=== PATIENT | female | born 1970 | race African-American/Black ===

== ENCOUNTER 2019-10-24 04:04 | Emergency (ER) | payer OTHER, SELFPAY ==
--- NOTE | ~2019-10-24 | CT_ITS ---
EXAMINATION: CTA brain carotid DATE: 10/24/2019 05:57 INDICATION: Right-sided headache and arm pain TECHNIQUE: Computed tomographic angiography (CTA) of the head was performed without and with 100 mL O mnipaque-350 intravenous contrast. CTA of the neck was performed with intravenous contrast. The dose- length product was 1758.26 mGy-cm. Maximum intensity projection and volume rendered 3D-reconstruction s were created by the technologist on a separate workstation. Automated exposure control and iterativ e reconstruction technique were employed. COMPARISON: None. FINDINGS: HEAD CTA: There is no intracranial hemorrhage, acute infarction, or abnormal mass lesion. The ventric les are normal. There is no abnormal mass effect or midline shift. The del cid-white matter differentiat ion is normal. The basal cisterns are patent. The orbits are normal. The paranasal sinuses, mastoids and calvarium are normal. There is no significant stenosis of the basilar artery or posterior cerebral arteries. There is no si gnificant stenosis of the intracranial internal carotid arteries or the anterior or middle cerebral a rteries. The anterior communicating artery and posterior communicating arteries are normal. There is no aneurysm. NECK CTA: There are no pathologically enlarged cervical lymph nodes. There is mild dependent atelecta sis of the lungs. Mild cervical spondylosis is noted. There is 0% stenosis of the proximal right internal carotid artery relative to normal distal artery l umen diameter (NASCET criteria). There is 0% stenosis of the proximal left internal carotid artery re lative to normal distal artery lumen diameter. IMPRESSION: 1. No acute intracranial abnormality. Normal head CTA. 2. 0% stenosis of the proximal right internal carotid artery relative to normal distal artery lumen d iameter (NASCET criteria). 3. 0% stenosis of the proximal left internal carotid artery relative to normal distal artery lumen di ameter. Reviewed, dictated and finalized at location A. BINDER IMPRESSION: 1. No acute intracranial abnormality. Normal head CTA. 2. 0% stenosis of the proximal right internal carotid artery relative to normal distal artery lumen diameter (NASCET criteria). 3. 0% stenosis of the proximal left internal carotid artery relative to normal distal artery lumen diameter.
[2019-10-24 04:12] VITALS: BP 138/83; PULSE 80; RESP 18; TEMP 36.6; O2SAT 99
--- NOTE | 2019-10-24 04:38 | ED.HA ---
HPI - Headache General Chief Complaint: Headache Stated Complaint: headache Time Seen by Provider: 10/24/19 04:40 Source: RN notes reviewed History of Present Illness HPI Narrative: Patient presents emergency department from home for headache. Patient states symptoms began approximately 10 PM last night. Pain is located over the right side of the head and does not radiate. Patient describes the pain as throbbing. She states is associated with nausea as well as a throbbing pain in her right arm. Patient states that approximately once a month for numerous years she has had pain over the right side of her head with associated pain in her right arm. States symptoms will sometimes resolve after few hours and sometimes will last for an entire day. Patient does states she took Tylenol prior to arrival today states that she has never had any previous evaluation for her headaches. She denies any fevers or chills chest pain shortness of breath or any other symptoms. Patient states that while she has a throbbing in the right arm there is no numbness tingling or weakness. There is no tenderness to touching the right arm and there is full range of motion of all joints without pain with movement Related Data Allergies Allergy/AdvReac Type Severity Reaction Status Date / Time amoxicillin [From Augmentin] Allergy Diarrhea Verified 10/24/19 04:16 clavulanic acid Allergy Diarrhea Verified 10/24/19 04:16 [From Augmentin] clindamycin Allergy Unknown Verified 10/24/19 04:16 Review of Systems Review of Systems: Narrative: Gen.: Denies fevers or chills Eyes: Denies eye pain or visual change ENT: Denies congestion Respiratory: Denies shortness of breath or cough CV: Denies chest pain or palpitations GI: Denies abdominal pain nausea, emesis or diarrhea denies burning, urgency, frequency or hematuria Musculoskeletal: Denies back pain or muscle pain Neuro: See HPI Skin: Denies rash Except as documented, all other systems reviewed and negative [facility] Past Medical History Medical History (Updated 10/24/19 @ 05:51 by Delfino Nur DO) Patient denies significant medical history Family History Family History (Updated 03/30/16 @ 23:21 by DOCTOR UNKNOWN) Mother Hypertension Family history of liver disease Cerebrovascular accident Patient's mother is Family history of alcoholism Sibling Patient's sister is in good health Patient's brother is in good health Family history of thyroid disease Father Cerebrovascular accident, Onset Age: 76 Hypertension Family history of kidney disease Patient's father is Family history of alcoholism Family history of congestive heart failure Grandparent Cerebrovascular accident Social History Social History Smoking status: Never smoker Alcohol intake: never Exam Narrative: Exam Narrative: APPEARANCE: No acute distress, nontoxic, resting in bed HEENT: Normocephalic, atraumatic, OMM, TMs clear bilaterally EYES: PERRL, EOMI NECK: Supple, nontender, full range of motion without pain, no meningismus RESPIRATORY: No respiratory distress, clear to auscultation bilaterally with no rhonchi wheezing or rales CARDIOVASCULAR: RRR s murmur ABDOMINAL: Soft, nontender, nondistended MUSCULOSKELETAL: Moves all extremities. No clubbing, cyanosis or edema. Bilateral radial pulse 2+. Full range of motion of right wrist elbow and shoulder without pain the entire right upper extremity is nontender to palpation it is warm to touch NEURO: A and O ?3, following commands, speech normal, cranial nerves II through XII grossly intact,muscle strength 5 out of 5 bilateral upper and lower extremities SKIN:: Warm, dry. Normal Color PSYCHIATRIC: Normal affect/mood Course Course Emergency Course: Patient states headache is resolved at this time as well as arm pain Discussed with patient results of workup and diagnosis. Discussed rustam
[2019-10-24] MEDS: LACTATED RINGERS 1,000 ML 999 ML IV CONT (04:46)
[2019-10-24] MEDS: KETOROLAC 30 MG/ML VIAL (*BKC) IV PUSH (04:46)
[2019-10-24] MEDS: ONDANSETRON INJ 4 MG/2 ML VIAL IV PUSH (04:47)
[2019-10-24 05:02] LABS: Basophils Percent Auto 0.7 % (0.2-1.2); Eosinophils Absolute Auto 0.1 K/mm3 (0-0.3); Eosinophils Percent Auto 1.6 % (0-4.4); Hematocrit 39.5 % (37.0-47.0); Hemoglobin 12.5 g/dL (12.0-15.0); Immature Granulocyte Absolute 0.01 K/mm3 (0.00-0.031); Immature Granulocyte Percent A 0.2 % (0-0.5); Lymphocytes Absolute Auto 2.22 K/mm3 (0.9-3.2); Lymphocytes Percent Auto 50.8 % (18.3-44.2); Mean Corpuscular HGB Conc 31.6 g/dl (32-36); Mean Corpuscular Hemoglobin 29.8 pg (26-34); Mean Corpuscular Volume 94.3 fl (80-100); Mean Platelet Volume 10.6 fl (7.4-10.4); Monocytes Absolute Auto 0.3 K/mm3 (0.1-0.6); Monocytes Percent Auto 7.3 % (2.6-8.5); Neutrophils Absolute Auto 1.7 K/mm3 (1.3-6.7); Neutrophils Percent Auto 39.4 % (45.5-73.1); Platelet Count Result 229 k/mm3 (150-375); Red Blood Count 4.19 M/mm3 (4.2-5.4); Red Cell Distribution Width 12.2 % (11.5-14.5); White Blood Count 4.4 K/mm3 (4.5-10.0)
[2019-10-24 05:16] LABS: Blood Urea Nitrogen 11 mg/dL (7-17); Calcium 8.8 mg/dL (8.4-10.2); Carbon Dioxide 25 mmol/L (22-30); Chloride 101 mmol/L (98-107); Estimated Glomerular Filt Rate > 60; Glucose 102 mg/dL (65-105); Potassium 3.6 mmol/L (3.4-5.0); Sodium 137 mmol/L (137-145)
[2019-10-24 06:30] VITALS: BP 124/77; PULSE 73; RESP 20; O2SAT 100
--- NOTE | 2019-10-31 19:44 | PC.NURSE ---
LATE ENTRY This note is being entered to document information to the patient's record. The following information was omitted on [10/24/2019], LR stop time 6362.
== END 2019-10-24 06:31 | disposition home or self-care (01) ==
PROVIDERS: Emergency Provider Emergency Medicine
DX: R51 Headache (principal)
CPT/HCPCS: 36415; 70496; 70498; 80048; 81025; 85025; 96361; 96374; 96375; 99284; J1200; J1885; J2405; J7120; Q9967

== ENCOUNTER → 2020-10-01 11:13 | Outpatient (CLI) | payer OTHER, SELFPAY ==
--- NOTE | ~2020-10-01 | MM_ITS ---
EXAMINATION: MM screening barbara BI w maycol HISTORY: Screening mammogram TECHNIQUE: Craniocaudal and mediolateral oblique 3-D tomosynthesis images were obtained and synthetic 2-D images were generated. Bilateral rotated lateral cc views. CAD analysis was submitted and interp reted. COMPARISON: 07/21/2019, 06/21/2018 bilateral digital screening mammogram examinations 02/04/2018 diagnostic left digital mammogram and complete left breast ultrasound 06/19/2017 bilateral digital screening mammogram BREAST PARENCHYMAL COMPOSITION: There are scattered areas of fibroglandular density. FINDINGS: A biopsy marker is noted on each side. History of prior benign bilateral breast biopsies. T here is no evidence of suspicious mass, calcification, or architectural distortion to suggest maligna ncy in either breast. There has been no suspicious interval change. IMPRESSION: 1. No mammographic evidence of malignancy. 2. Recommend routine screening mammography in one year. BI-RADS Category 1: Negative Reviewed, dictated and finalized at location A. NCED MANUFA[employer]URING ASSOCIATE
== END ==
PROVIDERS: Visit Provider Obstetrics & Gynecology Gynecology
DX: Z12.31 Encounter for screening mammogram for malignant neoplasm of breast (principal)
CPT/HCPCS: 77063; 77067

== ENCOUNTER → 2021-08-05 10:39 | Outpatient (CLI) | payer OTHER, SELFPAY ==
--- NOTE | ~2021-08-05 | XR_ITS ---
EXAMINATION: XR wrist LT min 3V DATE: 08/05/2021 11:20 INDICATION: Left wrist pain. TECHNIQUE: 4 views of left wrist were obtained. COMPARISON: None. FINDINGS: Bone alignment is normal. No fracture. There is mild osteoarthritis of first carpometacarpa l joint. IMPRESSION: 1. Mild osteoarthritis of first carpometacarpal joint. Reviewed, dictated and finalized at location A. ROUTER
== END ==
DX: M19.032 Primary osteoarthritis, left wrist (principal)
CPT/HCPCS: 73110

== ENCOUNTER → 2021-10-06 12:33 | Outpatient (CLI) | payer OTHER, SELFPAY ==
--- NOTE | ~2021-10-06 | MM_ITS ---
EXAMINATION: MM screening barbara BI w maycol HISTORY: Screening TECHNIQUE: Craniocaudal and mediolateral oblique 3-D tomosynthesis images were obtained and synthetic 2-D images were generated. CAD analysis was submitted and interpreted. COMPARISON: Comparison to multiple prior studies sequentially, with oldest reviewed study dated 06/02. BREAST PARENCHYMAL COMPOSITION: Breast composed of scattered areas of fibroglandular density FINDINGS: There is no evidence of suspicious mass, calcification, or architectural distortion to sugg est malignancy in either breast. There has been no suspicious interval change. IMPRESSION: 1. No mammographic evidence of malignancy. 2. Recommend routine screening mammography in one year. BI-RADS Category 1: Negative Reviewed, dictated and finalized at location A. TICS DIRECTOR
== END ==
PROVIDERS: Visit Provider Obstetrics & Gynecology Gynecology
DX: Z12.31 Encounter for screening mammogram for malignant neoplasm of breast (principal)
CPT/HCPCS: 77063; 77067

== ENCOUNTER → 2022-10-09 16:51 | Outpatient (CLI) | payer OTHER, SELFPAY ==
--- NOTE | ~2022-10-09 | MM_ITS ---
EXAMINATION: MM screening barbara BI w maycol HISTORY: Screening mammogram TECHNIQUE: Craniocaudal and mediolateral oblique 3-D tomosynthesis images were obtained and synthetic 2-D images were generated. CAD analysis was submitted and interpreted. COMPARISON: 10/2021, 10/01/2020, 07/11/2019 bilateral screening mammogram examinations BREAST PARENCHYMAL COMPOSITION: There are scattered areas of fibroglandular density. FINDINGS: There is a biopsy marker on each side; history of prior bilateral benign breast biopsies. No suspicious mass or architectural distortion, malignant calcification, skin thickening or retractio n or significant new or developing density is detected. . IMPRESSION: 1. No mammographic evidence of malignancy. 2. Recommend routine screening mammography in one year. BI-RADS Category 1: Negative Reviewed, dictated and finalized at location A. ASSOCIATE
== END ==
PROVIDERS: Visit Provider Obstetrics & Gynecology Gynecology
DX: Z12.31 Encounter for screening mammogram for malignant neoplasm of breast (principal)
CPT/HCPCS: 77063; 77067

== ENCOUNTER → 2022-11-30 16:02 | Outpatient (CLI) | payer OTHER, SELFPAY ==
--- NOTE | ~2022-11-30 | XR_ITS ---
EXAMINATION: XR chest 2V DATE: 11/30/2022 16:23 INDICATION: Shortness of breath TECHNIQUE: AP and lateral views of the chest are obtained. COMPARISON: None available FINDINGS: The lungs are free of acute opacities. No pleural effusion or pneumothorax. The cardiomedia stinal silhouette is normal. There is mild thoracic spondylosis. IMPRESSION: 1. No acute cardiopulmonary abnormality. Reviewed, dictated and finalized at location F.
== END ==
DX: R06.02 Shortness of breath (principal)
CPT/HCPCS: 71046

== ENCOUNTER 2022-12-27 10:24 | Outpatient (CLI) | payer OTHER, SELFPAY ==
[2022-12-27 11:03] LABS: Anion Gap 6 mmol/L (8-16); Blood Urea Nitrogen 10 mg/dL (7-17); Calcium 8.4 mg/dL (8.4-10.2); Carbon Dioxide 27 mmol/L (22-30); Chloride 104 mmol/L (98-107); Estimated Glomerular Filt Rate > 60; Glucose 103 mg/dL (65-110); Potassium 3.4 mmol/L (3.4-5.0); Sodium 137 mmol/L (137-145)
== END 2022-12-27 10:25 | disposition home or self-care (01) ==
LOC: ANHSURGERY 10:30
PROVIDERS: Anesthesiology; Visit Provider Obstetrics & Gynecology Gynecology
DX: Z01.812 Encounter for preprocedural laboratory examination (principal); Z79.899 Other long term (current) drug therapy
CPT/HCPCS: 36415; 80048

== ENCOUNTER 2022-12-31 02:12 | Day surgery (SDC) | payer OTHER, SELFPAY ==
[2022-12-24 11:11] VITALS: BMI 25.8
--- NOTE | 2022-12-24 11:18 | PC.NURSE ---
Report to the Outpatient Waiting Room, entrance under the green pavilion located off [facility], at time 11:30 on date 12/31/22. Planned Procedure Time: 1:30. Time changes happen often and if your time is changed the preop area will call you the afternoon before. - You and your visitor will be asked to self-screen and do not enter if you have any COVID symptoms. - A mask is optional within the hospital at this time. Patients may have clear liquids (water, carbonated beverages, clear teas, apple juice) until 3 hours prior to surgery (10:30) with a maximum of 20 ounces. - No food from midnight until time of surgery Take the following medications with a SIP of water the morning of surgery: NONE DO NOT STOP ANY OF YOUR OTHER PRESCRIPTION MEDICATIONS PRIOR TO SURGERY EXCEPT THE FOLLOWING Medications to discontinue per physician: VITAMINS/SUPPLEMENTS Date to take last dose: 12/27/22 Please no make-up, nail divehi, hairspray, perfume, deodorant, or body powder the day of surgery. No jewelry (including any body piercings) or valuables the day of surgery, leave them at home. Please take a shower or bath the night before, or the morning of, surgery with an antibacterial soap. Wear comfortable, loose fitting clothing. - Jewelry must be removed prior to entering the operating room. Rings and piercings that are not removed may be cut off. - The hospital will not accept responsibility for valuables. - Please leave all valuables, including medications, at home the day of surgery. If you are going home after surgery, a licensed interstate bus driver must drive you home. - NO public transportation without another adult if you receive anesthesia. - We recommend that an adult stay with you for 24 hours following discharge. - We also recommend that you do not drive, make important decision, drink alcoholic beverages, or take any drugs that were not prescribed by your health care provider for at least 24 hours after your discharge time. Follow any additional instructions given to you from your surgeon. If you or anyone in your household have experienced Covid symptoms in the past week, please notify your surgeon or the nurse liaison at the phone number below for possible testing. Telephone instructions given to PT - TREVON VALLEJO and asked if any additional questions and then verbalized understanding. Patient advised to call surgeon office or pre surgery nurse liaison [phone] if any additional questions.
--- NOTE | 2022-12-31 08:33 | WPDHPUPDATE1 ---
History and Physical Update Update Date/Time: 12/31/22 08:33 History and Physical has been reviewed, including an updated exam of the patient. There are NO changes in the patient's condition. Risks, benefits, and alternatives have been discussed and questions answered. Patient agrees to proceed with procedure.
--- NOTE | 2022-12-31 08:33 | PM.HPGS ---
History of Present Illness History of Present Illness Consent: Risks, benefits, and alternatives have been discussed and questions answered. Patient agrees to proceed with procedure. Chief complaint: Menorrhagia Narrative: María Elena Blood is a 52 year old female Who stopped her control in May. She had no cycles for 4 months. She then in September had 3 weeks of bleeding so she restarted her oral contraceptives. She had bleeding for 2 weeks starting December 01. She was using 2 super pads at a time. It was recommended to proceed with D&C hysteroscopy for further evaluation. Risks of infection, bleeding, perforation, and possible pathology were discussed. Patient voices understanding and agrees to proceed. [facility] Past Medical History Medical History (Updated 12/31/22 @ 08:37 by Cassie Raza MD) History of hyperthyroidism HTN (hypertension) Surgical History Surgical History (Updated 12/31/22 @ 08:36 by Cassie Raza MD) History of hysteroscopy 2013 with hysteroscopic myomectomy Family History Family History (Updated 03/30/16 @ 23:21 by DOCTOR UNKNOWN) Mother Hypertension Family history of liver disease Cerebrovascular accident Patient's mother is Family history of alcoholism Sibling Patient's sister is in good health Patient's brother is in good health Family history of thyroid disease Father Cerebrovascular accident, Onset Age: 76 Hypertension Family history of kidney disease Patient's father is Family history of alcoholism Family history of congestive heart failure Grandparent Cerebrovascular accident Social History Social History Smoking status: Never smoker Alcohol intake: never Substance use: never Substance use type: does not use Living arrangements: alone Spiritual care concerns: No Meds Home Medications and Allergies Home Medications Medication Instructions Recorded Confirmed Type cholecalciferol (vitamin D3) 125 125 mcg PO DAILY 12/24/22 12/24/22 History mcg (5,000 unit) tablet (Vitamin D3) norethindrone 1 mg-ethinyl 1 tablet PO DAILY 12/24/22 12/24/22 History estradiol 20 mcg (21)-iron 75 mg (7) tablet (Microgestin FE 09/21 (28)) omeprazole 40 mg capsule,delayed 40 mg PO DAILY 12/24/22 12/24/22 History release triamterene 37.5 1 tablet PO DAILY 12/24/22 12/24/22 History mg-hydrochlorothiazide 25 mg tablet Allergies Allergy/AdvReac Type Severity Reaction Status Date / Time clindamycin Allergy Unknown Verified 12/24/22 11:09 amoxicillin [From Augmentin] AdvReac Diarrhea Verified 12/31/22 07:36 clavulanic acid AdvReac Diarrhea Verified 12/31/22 07:36 [From Augmentin] Exam Const: General: healthy appearing and alert Orientation/consciousness: patient oriented x3 Resp: Effort & Inspection: normal respiratory effort GI: GI Palp: Yes Soft to palpation, No Tenderness to palpation present (GI) and No Palpable mass present : External Female Exam: normal external appearance Speculum Exam - Vagina: normal appearance of the vagina and normal vaginal discharge Speculum Exam - Cervix: normal appearance of the cervix Bimanual exam- vagina & uterus: uterine size normal and consistency normal Bimanual Exam- Adnexa, other: normal adnexae and No adnexal tenderness Neuro: General: patient oriented x3 Assessment and Plan Assessment and plan (1) Menorrhagia: Code(s): N92.0 - Excessive and frequent menstruation with regular cycle Status: Acute Assessment and Plan: plan to proceed with D&C hysteroscopy
[2022-12-31 11:47] VITALS: BP 148/87; PULSE 73; RESP 16; TEMP 36.7; O2SAT 100
--- NOTE | 2022-12-31 11:54 | P.PNAN_ITS ---
Anes - Initial Pre Proc Eval Procedure: Operation Date: 12/31/22 13:30 Proposed Procedures p Hysteroscopy Dilation and Curettage - Cassie Raza MD Date/Time: 12/31/22 11:54 Surgeon: Cassie Raza MD Pre Op Diagnosis: Menorrhagia Patient Data Age: 52 Gender: F Height: 1.8 m Weight: 83.95 kg Allergies Allergy/AdvReac Type Severity Reaction Status Date / Time clindamycin Allergy Unknown Verified 12/24/22 11:09 amoxicillin [From Augmentin] AdvReac Diarrhea Verified 12/31/22 07:36 clavulanic acid AdvReac Diarrhea Verified 12/31/22 07:36 [From Augmentin] Home Medications Medication Instructions Recorded Confirmed Type cholecalciferol (vitamin D3) 125 125 mcg PO DAILY 12/24/22 12/24/22 History mcg (5,000 unit) tablet (Vitamin D3) norethindrone 1 mg-ethinyl 1 tablet PO DAILY 12/24/22 12/24/22 History estradiol 20 mcg (21)-iron 75 mg (7) tablet (Microgestin FE 09/21 (28)) omeprazole 40 mg capsule,delayed 40 mg PO DAILY 12/24/22 12/24/22 History release triamterene 37.5 1 tablet PO DAILY 12/24/22 12/24/22 History mg-hydrochlorothiazide 25 mg tablet Patient hx anesthesia problems: none Family hx anesthesia problems: none Results Review: All pre-operative results and documents have been reviewed as part of the pre- operative evaluation. [facility] Past Medical History Medical History (Updated 12/31/22 @ 08:37 by Cassie Raza MD) History of hyperthyroidism HTN (hypertension) Surgical History Surgical History (Updated 12/31/22 @ 08:36 by Cassie Raza MD) History of hysteroscopy 2013 with hysteroscopic myomectomy Family History Family History (Updated 03/30/16 @ 23:21 by DOCTOR UNKNOWN) Mother Hypertension Family history of liver disease Cerebrovascular accident Patient's mother is Family history of alcoholism Sibling Patient's sister is in good health Patient's brother is in good health Family history of thyroid disease Father Cerebrovascular accident, Onset Age: 76 Hypertension Family history of kidney disease Patient's father is Family history of alcoholism Family history of congestive heart failure Grandparent Cerebrovascular accident Social History Social History Smoking status: Never smoker Alcohol intake: never Substance use: never Substance use type: does not use Living arrangements: alone Spiritual care concerns: No Anes - Eval Final PreProcedure Day of Procedure 12/31/22 11:54 Patient weight: normal Heart: regular rate and rhythm Lungs: clear to auscultation Airway: Mallampati scale Neurological: alert and oriented Last oral intake: >/= 8 hours Emergent: no Anesthetic plan: proceed Anesthesia type and monitoring: general GIVS and standard monitoring Results Review: All pre-operative results and documents have been reviewed as part of the pre- operative evaluation. Informed Consent: The patient's anesthetic plan and its attendant risks and benefits were discussed with the patient/family/POA. Questions were solicited and answers provided to the satisfaction of the patient/family/POA.
[2022-12-31] MEDS: ACETAMINOPHEN 500 MG TABLET 1000 MG PO (12:01)
[2022-12-31] MEDS: LACTATED RINGERS 1,000 ML 30 ML IV CONT (12:21)
[2022-12-31] MEDS: KETOROLAC 30 MG/ML VIAL (*BKC) IV PUSH (12:48)
[2022-12-31] MEDS: LIDOCAINE HCL 1% LOCAL INJ 20 ML VIAL 10 ML INFILTRATE (12:55)
--- NOTE | 2022-12-31 13:09 | W.PM.PROC2 ---
Procedure Note - Detailed Date of Procedure 12/31/22 Pre-op Diagnosis Menorrhagia Post-op Diagnosis Same Procedure Performed D&C hysteroscopy Surgeon Cassie Raza MD Anesthesia MAC and Local Findings uterus sounds to 8cm; multiple endometrial openings consistent with adenomyosis; atrophic appearing Description of Procedure The patient is taken to the operating room and placed under anesthesia in the dorsal lithotomy position. She was prepped and draped in usual sterile fashion. [place] speculum was placed in the vagina and the cervix grasped on the anterior lip with a tenaculum. The cervix is injected in each quadrant with 1% lidocaine. The uterus is sounded to 8cm. The diagnostic hysteroscope was placed with the above-stated findings. The hysteroscope was removed and the sharp curette used to curette the endometrium until a good uterine cry was noted in all areas. Instruments are removed. The patient is awakened from anesthesia and taken to recovery in stable condition. Sponge, needle, and instrument counts are correct per the OR staff. Estimated Blood Loss 5 Drains No Packing No Pathology Yes ( Endometrial curettings) Complications No immediate complications Condition Stable Disposition PACU
[2022-12-31 13:11] VITALS: BP 110/61; PULSE 78; RESP 14; O2SAT 99
[2022-12-31 13:40] VITALS: BP 115/70; PULSE 64; O2SAT 98
[2022-12-31 14:10] VITALS: BP 153/73; PULSE 62
[2022-12-31 14:30] VITALS: BP 144/75; PULSE 62
== END 2022-12-31 14:40 | disposition home or self-care (01) ==
PROVIDERS: Visit Provider Obstetrics & Gynecology Gynecology
PROC: 0U5B8ZZ Destruction of Endometrium, Via Natural or Artificial Opening Endoscopic (ICD-10-PCS; CPT 58563; principal; 2022-12-31 13:30)
DX: N92.0 Excessive and frequent menstruation with regular cycle (principal); N85.8 Other specified noninflammatory disorders of uterus; I10 Essential (primary) hypertension
CPT/HCPCS: 58558; 36415; 80048; 88305; A9270; J1100; J1885; J2250; J2405; J2704; J3010; J7120

== ENCOUNTER 2023-07-01 00:24 | Day surgery (SDC) | payer OTHER, SELFPAY ==
[2023-06-18 15:02] VITALS: BMI 25.2
--- NOTE | 2023-06-28 16:58 | PM.HPGS ---
History of Present Illness History of Present Illness Consent: Risks, benefits, and alternatives have been discussed and questions answered. Patient agrees to proceed with procedure. Chief complaint: neoplasm screening Narrative: María Elena Blood is a 53 year old female Referred for colon cancer screening. Review of Systems Review of Systems: All systems reviewed & are unremarkable except as noted in HPI and below PMFSH Past Medical History Medical History History of hyperthyroidism HTN (hypertension) Surgical History Surgical History History of hysteroscopy 2014 with hysteroscopic myomectomy Family History Family History Mother Hypertension Family history of liver disease Cerebrovascular accident Patient's mother is Family history of alcoholism Sibling Patient's sister is in good health Patient's brother is in good health Family history of thyroid disease Father Cerebrovascular accident, Onset Age: 76 Hypertension Family history of kidney disease Patient's father is Family history of alcoholism Family history of congestive heart failure Grandparent Cerebrovascular accident Social History Social History Smoking status: Never smoker Alcohol intake: never Substance use: never Substance use type: does not use Living arrangements: alone Spiritual care concerns: No Meds Home Medications and Allergies Home Medications Medication Instructions Recorded Confirmed Type cholecalciferol (vitamin D3) 125 125 mcg PO DAILY 12/24/22 06/18/23 History mcg (5,000 unit) tablet (Vitamin D3) norethindrone 1 mg-ethinyl 1 tablet PO DAILY 12/24/22 06/18/23 History estradiol 20 mcg (21)-iron 75 mg (7) tablet (Microgestin FE / (28)) triamterene 37.5 1 tablet PO DAILY 12/24/22 06/18/23 History mg-hydrochlorothiazide 25 mg tablet Allergies Allergy/AdvReac Type Severity Reaction Status Date / Time clindamycin Allergy Intermediate Headache Verified 06/18/23 15:00 amoxicillin [From Augmentin] AdvReac Mild Diarrhea Verified 06/18/23 15:00 clavulanic acid AdvReac Mild Diarrhea Verified 06/18/23 15:00 [From Augmentin] Exam Resp: Auscultation: clear to auscultation bilaterally Cardio: Rate: regular rate Rhythm: regular rhythm GI: GI Palp: Yes Soft to palpation and No Tenderness to palpation present (GI) Assessment and Plan Assessment and plan (1) Colon cancer screening: Code(s): Z12.11 - Encounter for screening for malignant neoplasm of colon Status: Acute Assessment and Plan: Colonoscopy with possible biopsy or polypectomy or cautery or injection of substances.
[2023-07-01 07:55] VITALS: BP 138/99; PULSE 83; RESP 18; TEMP 35.9; O2SAT 100; BMI 24.0
--- NOTE | 2023-07-01 08:00 | WPDANESEPPF ---
Anes - Initial Pre Proc Eval Procedure: Operation Date: 07/01/23 09:00 Proposed Procedures p Screening Colonoscopy - Rai Houser MD Date/Time: 07/01/23 08:00 Surgeon: Rai Houser MD Pre Op Diagnosis: neoplasm screening Patient Data Age: 53 Gender: F Height: 1.8 m Weight: 78.3 kg Last Vital Signs Temp 96.7 F L 07/01/23 07:55 Pulse 83 07/01/23 07:55 Resp 18 07/01/23 07:55 BP 138/99 H 07/01/23 07:55 Pulse Ox 100 07/01/23 07:55 O2 Del Method Room Air 07/01/23 07:55 Allergies Allergy/AdvReac Type Severity Reaction Status Date / Time clindamycin Allergy Intermediate Headache Verified 07/01/23 07:54 amoxicillin [From Augmentin] AdvReac Mild Diarrhea Verified 07/01/23 07:54 clavulanic acid AdvReac Mild Diarrhea Verified 07/01/23 07:54 [From Augmentin] Home Medications Medication Instructions Recorded Confirmed Type cholecalciferol (vitamin D3) 125 125 mcg PO DAILY 12/24/22 07/01/23 History mcg (5,000 unit) tablet (Vitamin D3) norethindrone 1 mg-ethinyl 1 tablet PO DAILY 12/24/22 07/01/23 History estradiol 20 mcg (21)-iron 75 mg (7) tablet (Microgestin FE / (28)) triamterene 37.5 1 tablet PO DAILY 12/24/22 07/01/23 History mg-hydrochlorothiazide 25 mg tablet Patient hx anesthesia problems: none Family hx anesthesia problems: none Results Review: All pre-operative results and documents have been reviewed as part of the pre-operative evaluation. [facility] Past Medical History Medical History History of hyperthyroidism HTN (hypertension) Surgical History Surgical History History of hysteroscopy 2013 with hysteroscopic myomectomy Family History Family History Mother Hypertension Family history of liver disease Cerebrovascular accident Patient's mother is Family history of alcoholism Sibling Patient's sister is in good health Patient's brother is in good health Family history of thyroid disease Father Cerebrovascular accident, Onset Age: 76 Hypertension Family history of kidney disease Patient's father is Family history of alcoholism Family history of congestive heart failure Grandparent Cerebrovascular accident Social History Social History Smoking status: Never smoker Alcohol intake: never Substance use: never Substance use type: does not use Living arrangements: alone Spiritual care concerns: No Anes - Eval Final PreProcedure Day of Procedure 07/01/23 08:00 Patient weight: normal Heart: regular rate and rhythm Lungs: clear to auscultation Airway: Mallampati scale class II Neurological: alert and oriented Last oral intake: >/= 8 hours ASA classification: II Emergent: no Anesthetic plan: proceed Anesthesia type and monitoring: general GIVS and standard monitoring Results Review: All pre-operative results and documents have been reviewed as part of the pre-operative evaluation. Informed Consent: The patient's anesthetic plan and its attendant risks and benefits were discussed with the patient/family/POA. Questions were solicited and answers provided to the satisfaction of the patient/family/POA.
[2023-07-01] MEDS: LACTATED RINGERS 1,000 ML 150 ML IV CONT (08:06)
[2023-07-01 08:39] VITALS: BP 109/76; PULSE 78; RESP 20; O2SAT 100
[2023-07-01 08:49] VITALS: BP 121/82; PULSE 74; RESP 17; O2SAT 100
[2023-07-01 08:59] VITALS: BP 126/86; PULSE 69; RESP 19; O2SAT 100
== END 2023-07-01 09:00 | disposition home or self-care (01) ==
PROVIDERS: Visit Provider Internal Medicine Gastroenterology
PROC: 0DJD8ZZ Inspection of Lower Intestinal Tract, Via Natural or Artificial Opening Endoscopic (ICD-10-PCS; CPT 45378; principal; 2023-07-01 09:00)
DX: Z12.11 Encounter for screening for malignant neoplasm of colon (principal); I10 Essential (primary) hypertension; E05.90 Thyrotoxicosis, unspecified without thyrotoxic crisis or storm
CPT/HCPCS: 45378; J2001; J2704; J7120

== ENCOUNTER → 2023-10-11 14:51 | Outpatient (CLI) | payer OTHER, SELFPAY ==
--- NOTE | ~2023-10-11 | MM_ITS ---
EXAMINATION: MM screening barbara BI w maycol HISTORY: Screening mammogram TECHNIQUE: Craniocaudal and mediolateral oblique 3-D tomosynthesis images were obtained and synthetic 2-D images were generated. CAD analysis was submitted and interpreted. COMPARISON: October 09, 2022, October 06, 2021, October 01, 2020 bilateral screening mammogram examin ations BREAST PARENCHYMAL COMPOSITION: There are scattered areas of fibroglandular density. FINDINGS: There is no evidence of suspicious mass, calcification, or architectural distortion to sugg est malignancy in either breast. There has been no suspicious interval change. IMPRESSION: 1. No mammographic evidence of malignancy. 2. Recommend routine screening mammography in one year. BI-RADS Category 1: Negative Reviewed, dictated and finalized at location A. [employer]
== END ==
PROVIDERS: PCP Obstetrics & Gynecology Gynecology; Visit Provider Obstetrics & Gynecology Gynecology
DX: Z12.31 Encounter for screening mammogram for malignant neoplasm of breast (principal)
CPT/HCPCS: 77063; 77067

== ENCOUNTER 2025-02-13 11:43 | Outpatient (CLI) | payer OTHER, SELFPAY ==
--- NOTE | ~2025-02-13 | MM_ITS ---
EXAMINATION: MM screening barbara BI w maycol HISTORY: Screening TECHNIQUE: Craniocaudal and mediolateral oblique 3-D tomosynthesis images were obtained and synthetic 2-D images were generated. CAD analysis was submitted and interpreted. COMPARISON: Comparison to multiple prior studies sequentially, with oldest reviewed study dated 06/03. BREAST PARENCHYMAL COMPOSITION: Not dense: There are scattered areas of fibroglandular density. FINDINGS: There is no evidence of suspicious mass, calcification, or architectural distortion to sugg est malignancy in either breast. There has been no suspicious interval change. IMPRESSION: 1. No mammographic evidence of malignancy. 2. Recommend routine screening mammography in one year. BI-RADS Category 1: Negative Reviewed, dictated and finalized at location A.
== END 2025-02-13 11:44 | disposition home or self-care (01) ==
LOC: MICIMG 11:46
PROVIDERS: Visit Provider Obstetrics & Gynecology Gynecology
DX: Z12.31 Encounter for screening mammogram for malignant neoplasm of breast (principal)
CPT/HCPCS: 77063; 77067

== ENCOUNTER 2025-05-23 16:22 | Emergency (ER) | payer OTHER, SELFPAY ==
--- OUTSIDE RECORDS SUMMARY | 2023-04-04 04:26 | XMS_ITS | Continuity of Care Document ---
Author Organization [facility] Address [address] [place] [address] Phone Care Team Providers Care Proofer Name Role Phone Darren Saha MD Unavailable Unavailable Advance Directives Directive Yes / No Effective Date File Name No Information Encounters Encounter Description Practice Location Reason(s) For Visit Diagnoses Date Provider Providers Copied on Encounter [facility], [address], [place], [place], [id number], [place] tel:[phone] [facility] No Information Maria A Banks. [address], [place], [place], [id number] , [place]. tel: [phone] Family History Family Member Type Diagnosis Age At Onset No Information Payers Payer name Insurance type Covered libertarian ID Authoriza tion(s) No Information Social History Type Description Quantity Date Captured Comments Sex Female Smoking Status No Information Chief Complaint And Reason For Visit No Information Reason For Referral Reason For Referral No Information History Of Present Illness Encounter Date Complaint History Of Prese nt Illness No Information Functional Status Date Functional Assessmen t No Information Instructions Date Instruction Additional Infor mation No Information Assessments Type Assessment Date No Information Patient Care Teams Name Effective Dates (start - stop) Status Members No Information
--- NOTE | ~2025-05-23 | XR_ITS ---
EXAMINATION: XR foot RT min 3V, 05/23/2025 18:30 CDT HISTORY: Right 5th toe trauma COMPARISON: No comparisons available. Findings: No acute fracture or malalignment. No significant degenerative changes. Soft tissues unremarkable. Impression: No acute fracture or malalignment. Reviewed, dictated and finalized at location A. Impression: No acute fracture or malalignment.
--- NOTE | ~2025-05-23 | XR_ITS ---
EXAMINATION: XR foot LT min 3V, 05/23/2025 18:30 CDT HISTORY: Nontraumatic pain COMPARISON: No comparisons available. Findings: No acute fracture or malalignment. No significant degenerative changes. Soft tissues unremarkable. Impression: No acute fracture or malalignment. Reviewed, dictated and finalized at location A. Impression: No acute fracture or malalignment.
--- OUTSIDE RECORDS SUMMARY | 2025-05-23 16:24 | XMS_ITS | Clinical Summary ---
Author Organization [facility] [employer] Address [address] [place] [address] Care Team Providers Care Director Recreation Name Role Phone Rupinder Alex MD Unavailable [phone] Rupinder Alex MD Primary Care Provider [phone] Rupinder Alex MD Unavailable [phone] Source Comments [facility],non-owned Affiliates and Associated Physician Practices is amultiple site organization consisting of ambulatory clinics and hospital sitesin [place], [place], [place] and [place]. This disclosure is being madepursuant to the Care Everywhere program and may not contain all information available regarding this patient. Last updated 18.[facility] Allergies Active Allergy Reactions Criticality Noted Date Comments Clindamycin Headache 09/14/2019 Medications * Be aware that medications may not be up to date on this document. Alwaysverify current medications with the patient. multivitamins plus minerals chew tablet Take 1 (one) tablet by mouth daily with food Active omeprazole (PriLOSEC) 40 MG capsule Take 1 (one) capsule by mouth once daily 90 capsule 03/24/20 24 Active cyanocobalamin (Vitamin B-12) injectionIndications:Vi tamin B12 deficiency Inject 1,000 (one thousand) mcg into muscle every 30 days 10 mL 1 02/04/20 25 Active NEEDLE, DISP, 25 G (BD Disp [place]) 25G X 5/8 MISCIndications:Vitamin B12 deficiency 1 injection weekly for 4 weeks then monthly 30 Each 1 02/04/20 25 Active losartan - hydroCHLOROthiazide (Hyzaar) 50-12.5 MG tablet Take 1 (one) tablet by mouth once daily 90 tablet 04/09/20 25 Active Active Problems Problem Noted Date Diagnosed Date Essential hypertension 02/08/2017 Vitamin B12 deficiency 02/08/2017 Resolved Problems Problem Noted Date Diagnosed Date Resolved Date Lump of left breast 05/14/2018 03/28/20 23 Encounters Date Type Department Care Team Description 04/09/2025 2:45 PM CDT Office Visit [facility] - [facility] [address] [place] [address] Rupinder Alex MD Essential hypertension (Primary Dx); Menopausal symptoms from Last 3 Months Immunizations Immunization Administration Dates Next Due DTP 02/11/1995 DTaP VACCINE IM (6wk-6yrs) 07/23/1974,,05/29/1973,04/21/19 73,03/13/1973 HEP A/HEP B 08/29/2011,02/22/2011,01/18/2011 INFLUENZA VACCINE 05/27/2020,06/29/2019,06/10/20 18 MMR 04/18/1998,05/29/1973 POLIO OPV 06/09/1973,03/13/1973,02/19/1973 TD VACCINE 2002 TDAP (7yrs+) 12/02/2020,03/11/2010 Zoster Hzv Vacc Recombinant Inj Im 03/24/2024, Family History Medical History Relation Name Comments Hypertension Brother CAD (Coronary Artery Disease) Father Hypertension Father etoh Hypertension Mother etoh Asthma Sister 1 Hypertension Sister 1 Cancer - Breast Sister 2 Relation Name Status Comments Brother Alive Father Mother Sister 1 Alive Sister 2 Alive Social History Tobacco Use Types Packs/Day Years Used Date Smoking Tobacco: Never Smokeless Tobacco: Never Tobacco Cessation:Counseling Given: Not Answered Alcohol Use Standard Drinks/Week Comments No 0 (1 standard drink = 0.6 oz pur e alcohol) PHQ-2 Answer Date Recorded Patient Health Questionnaire-2 Score 0 10/02/2024 Comments No Sex and Gender Information Value Date Recorded Sex Assigned at Not on file Legal Sex Female 9:44 AM CDT Gender Identity Female 05/28/2017 3:42 PM CDT Sexual Orientation Not on file Last Filed Vital Signs Vital Sign Reading Time Taken Comments Blood Pressure 140/82 04/09/2025 2:34 PM CDT Pulse 89 04/09/2025 2:34 PM CDT Temperature 37.5 C (99.5 F) 03/24/2024 1:55 PM CDT Respiratory Rate 12 03/24/2024 1:55 PM CDT Oxygen Saturation 99% 03/24/2024 1:55 PM CDT Inhaled Oxygen Concentration - - Weight 84.4 kg (186 lb) 04/09/2025 2:34 PM CDT Height 180.3 cm (5' 11) 04/09/2025 2:34 PM CDT Body Mass Index 25.94 04/09/2025 2:34 PM CDT Plan of Treatment Upcoming Encounters Date Type Department Care Team (Late st Contact Info) Description 05/26/2025 3:45 PM CDT Office Visit [address] [address] Rupinder Alex MD [address] [place] [address] 08/20/2025 2:00 PM EXECUTIVE SALES MANAGER Office Visit [address] [address] Rupinder Alex MD [address] [place] [address] Health Maintenance Due Date Last Done Comments CT COLONOGRAPHY - COLON CA SCREENING 1970 FIT - COLON CA SCREENING 1970 FLEX SIG - COLON CA SCREENING 1970 PNEUMOCOCCAL VACCINE 50+ (1 of 1 - PCV) 2020 COLOGUARD (AGES 45-75) - COLON CA SCREENING 06/20/2023 06/20/2020, 06/13/2020 COVID-19 VACCINE ( - season) 2025 INFLUENZA VACCINE (#1) 2025 0, 06/29/2019, 06/10/2018 MAMMOGRAM 02/14/2027 02/14/2025, 02/0 12/2021, 07/11/2019, Additional history exists PAP SMEAR 03/02/2027 03/02/2024 (Done Outside Per Patient), 02/21/2021 (Done Outside Per Report), 12/31/2016 (Previously completed) SCREENING FOR DIABETES 08/19/2027 , 08/19/2024, 09/27/2023, Additional history exists LIPID TESTING 08/19/2029 08/19/2024, 09/03, 07/24/2022, Additional history exists DTAP/TDAP/TD VACCINES (9 - Td or Tdap) 12/02/2030 12/02/2020, 03/11/2010, 2002, Additional history exists COLON MONITORING 07/01/2033 07/01/2023 COLONOSCOPY - COLON CA SCREENING 07/01/2033 07/01/2023 Colorectal Cancer Screening 07/01/2033 HEPATITIS B VACCINE Completed 08/29/2011, 02/22/2011, 01/18/2011 HEPATITIS C SCREENING Completed 04/20/2020 ZOSTER VACCINE Completed 03/24/2024, 12/02/2020 DEPRESSION SCREENING Completed 10/02/2024, 09/27/2023, 09/25/2022, Additional history exists HIB VACCINE Aged Out No longer eligi ble based on patient's age to complete this topic HIV SCREENING Discontinued HPV VACCINE Aged Out No longer eligi ble based on patient's age to complete this topic MENINGOCOCCAL (Group B) VACCINE SHARED DECISION-MAKING Aged Out No longer eligible based on patient's age to complete this topic MENINGOCOCCAL GROUPS A/C/Y/W VACCINE Aged Out No longer eligible based on patient's age to complete this topic Goals Goal Patient Goal Type Associated Problems Recent Progress Patient-Stated? Author Have labs drawn Lifestyle No Morena Mitchell LPN Procedures Procedure Name Priority Date/Time Associated Diagnosis Comments MAMMO BILAT SCREENING W RORY Routine 02/14/2025 Encounter for screening mammogram for malignant neoplasm of breast HEMOGLOBIN A1C W EAG Routine 08/19/2024 3:08 PM EXECUTIVE SALES MANAGER Neuropathy LIPID PROFILE Routine 08/19/2024 3:07 PM EXECUTIVE SALES MANAGER Screening for lipid disorders COLONOSCOPY 07/01/2023 COLOGUARD (EXTERNAL RESULT ENTRY) Routine 06/20/2020 HEPATITIS C ANTIBODY W RFLX PCR Routine 04/20/2020 2:27 PM CDT Need for hepatitis C screening test from Last 3 Months or Most Recently Relevant to Health Maintenance Results * Mammo Bilat Screening W Rory (02/14/2025) Anatomical Region Laterality Modality Breast Bilateral Mammography 02/14/2025 Rupinder Alex MD MAMMO ORDERABLES Final Result * HEMOGLOBIN A1C W EAG (08/19/2024 3:08 PM EXECUTIVE SALES MANAGER) Hemoglobin A1c 5.5 4.8 - 5.6 % [facility] INSURANCE BILL Comment: Prediabetes: 5.7 - 6.4 Diabetes: >6.4 Glycemic control for adults with diabetes: <7.0 Estimated Average Glucose 111 mg/dL [facility] INSURANCE BILL Blood BLOOD SPECIMEN / Unknown 08/19/2024 3:08 PM EXECUTIVE SALES MANAGER 08/19/2024 Narrative [facility] INSURANCE BILL - 08/20/2024 9:09 AM EXECUTIVE SALES MANAGER Performed at: [address] [id number] Roadability Machine Operator: Viet Myers PhD, Phone: [phone] Rupinder Alex MD LAB - CHEMISTRY ORDERABLES Fin al Result [facility] INSURANCE BILL [address] [place] [address] * LIPID PROFILE (08/19/2024 3:07 PM EXECUTIVE SALES MANAGER) Cholesterol 170 100 - 199 mg/dL [facility] INSURANCE BILL Triglycerides 42 0 - 149 mg/dL [facility] INSURANCE BILL HDL Cholesterol 74 >39 mg/dL [facility] INSURANCE BILL VLDL Calculated 9 5 - 40 mg/dL [facility] INSURANCE BILL LDL Calculated 87 0 - 99 mg/dL [facility] INSURANCE BILL Blood BLOOD SPECIMEN / Unknown 08/19/2024 3:07 PM EXECUTIVE SALES MANAGER 08/19/2024 Narrative [facility] INSURANCE BILL - 08/20/2024 10:09 AM EXECUTIVE SALES MANAGER Performed at: [address] [id number] Roadability Machine Operator: Viet Myers PhD, Phone: [phone] Rupinder Alex MD LAB - CHEMISTRY ORDERABLES Fin al Result [facility] INSURANCE BILL [address] [place] [address] * COLONOSCOPY (07/01/2023) 07/01/2023 Narrative 07/01/2023 Ordered by an unspecified provider. Scanned Document SCANNING ONLY Final Result * COLOGUARD (EXTERNAL RESULT ENTRY) (06/20/2020) Stool STOOL SPECIMEN / Unknown Cassie Raza MD LAB - CHEMISTRY ORDERABLES Final Result * HEPATITIS C ANTIBODY W RFLX PCR (04/20/2020 2:27 PM CDT) Hepatitis C Antibody 0.1 0.0 - 0.9 s/co ratio [facility] INSURANCE BILL Blood BLOOD SPECIMEN / Unknown 04/20/2020 2:27 PM CDT 04/20/2020 Narrative Resulting Agency Comment Lab Testing performed at: [facility] [id number] Rupinder Alex MD LAB - CHEMISTRY ORDERABLES Fin al Result [facility] INSURANCE BILL [address] [place] [id number] from Last 3 Months or Most Recently Relevant to Health Maintenance Insurance AETNA AETNA Care Teams Director Recreation Relationship Specialty Start Date End Date Rupinder Alex MD [address] [place] [address] PCP - General 01/11/23 Rupinder Alex MD [address] [place] [id number] PCP - Attributed-[employer] 06/02/23 Rupinder Alex MD [address] [place] [address] Family Medicine 02/08/17
[2025-05-23 16:27] VITALS: BP 146/83; PULSE 82; RESP 16; TEMP 36.6; O2SAT 100
--- NOTE | 2025-05-23 18:05 | ED.EXTPRO ---
HPI - Extremity Problem General Chief complaint: Extremity Problem,Nontraumatic Stated complaint: kan foot pain Time Seen by Provider: 05/23/25 18:05 Source: patient Mode of arrival: ambulatory Limitations: no limitations History of Present Illness HPI Narrative: 55 years old female came to the ED with pain at the ball of the foot bilaterally started noticed yesterday. Patient report stump the right 5th toe yesterday. Patient denies any fever, chills, nausea, vomiting, pain anywhere else. Patient denies any new or recent physical activities or new shoes. Related Data Home Medications ?Medication ?Instructions ?Recorded ?Confirmed ?Last Taken ?Type cholecalciferol (vitamin D3) 125 125 mcg PO DAILY 12/24/22 07/01/23 12/30/22 History mcg (5,000 unit) tablet (Vitamin D3) norethindrone 1 mg-ethinyl 1 tablet PO DAILY 12/24/22 07/01/23 12/31/22 History estradiol 20 mcg (21)-iron 75 mg (7) tablet (Microgestin FE 09/21 (28)) triamterene 37.5 1 tablet PO DAILY 12/24/22 07/01/23 12/30/22 History mg-hydrochlorothiazide 25 mg tablet Allergies Allergy/AdvReac Type Severity Reaction Status Date / Time clindamycin Allergy Intermediate Headache Verified 05/23/25 16:26 amoxicillin (From Augmentin) AdvReac Mild Diarrhea Verified 05/23/25 16:26 clavulanic acid (From AdvReac Mild Diarrhea Verified 05/23/25 16:26 Augmentin) Review of Systems Review of Systems: All systems reviewed & are unremarkable except as noted in HPI and below PMFSH Past Medical History Medical History History of hyperthyroidism HTN (hypertension) Surgical History Surgical History History of hysteroscopy 2013 with hysteroscopic myomectomy Family History Family History Mother Hypertension Family history of liver disease Cerebrovascular accident Patient's mother is Family history of alcoholism Sibling Patient's sister is in good health Patient's brother is in good health Family history of thyroid disease Father Cerebrovascular accident, Onset Age: 76 Hypertension Family history of kidney disease Patient's father is Family history of alcoholism Family history of congestive heart failure Grandparent Cerebrovascular accident Social History Social History Smoking status: Never smoker Alcohol intake: never Substance use: never Substance use type: does not use Living arrangements: alone Spiritual care concerns: No Exam Narrative: General appearance: Well-developed, well-nourished Skin: Normal color Head: Normocephalic, nontraumatic Vascular: Normal peripheral pulses, normal capillary refill. Musculoskeletal: Diffuse tenderness at the ball of the feet bilaterally, no bruises, no swelling, no rash Neurologic: Alert and oriented ?3, [employer]IST is normal as tested, no gross motor deficit Course Vital Signs Vital signs: Vital Signs Temperature 36.6 C 05/23/25 16:27 Pulse Rate 82 05/23/25 16:27 Respiratory Rate 16 05/23/25 16:27 Blood Pressure 146/83 H 05/23/25 16:27 Pulse Oximetry 100 05/23/25 16:27 Oxygen Delivery Room Air 05/23/25 16:27 Temperature 36.6 C 05/23/25 16:27 Pulse Rate 83 05/23/25 18:44 Respiratory Rate 15 05/23/25 18:44 Blood Pressure 151/97 H 05/23/25 18:44 Pulse Oximetry 96 05/23/25 18:44 Oxygen Delivery Room Air 05/23/25 16:27 MDM - Extremity (Nontraumatic) MDM Narrative Medical decision making narrative: Patient came with pain at the pole of the foot bilaterally noticed yesterday Vital signs are stable Physical examination showing diffuse tenderness at the ball of the foot bilaterally Differential diagnosis metatarsalgia secondary to repetitive stress, and proper foot wear or underlying foot deformity., plantar fasciitis, Discharge Plan Discharge Clinical Impression: Metatarsalgia of both feet Patient Disposition: Home Condition: Stable Instructions: Metatarsalgia (DC) Additional Instructions: Return if symptoms are worsening , call your family physician for appointment, take Tylenol as as needed for aches and pain, continue home medications. Rest and ice Supportive footwear with good arch support,, physical therapy, anti-inflammatory medication Patient Language: Hebrew Prescriptions: No Action norethindrone-e.estradiol-iron [Microgestin FE 09/21 (28)] 1 mg-20 mcg (21)/75 mg (7) tablet 1 tablet PO DAILY triamterene-hydrochlorothiazid 37.5-25 mg tablet 1 tablet PO DAILY cholecalciferol (vitamin D3) [Vitamin D3] 125 mcg (5,000 unit) Tablet 125 mcg PO DAILY Follow-up/Referrals: Ryan Cano Jr., DPM [Physician, Podiatry] - 05/24/25 PHYSICIAN NOT ON STAFF,NONSTAFF [Primary Care Provider]
[2025-05-23 18:44] VITALS: BP 151/97; PULSE 83; RESP 15; O2SAT 96
== END 2025-05-23 19:58 | disposition home or self-care (01) ==
LOC: ANHED 18:48
PROVIDERS: Emergency Provider Emergency Medicine
DX: M77.42 Metatarsalgia, left foot (principal); M77.41 Metatarsalgia, right foot; I10 Essential (primary) hypertension; E05.90 Thyrotoxicosis, unspecified without thyrotoxic crisis or storm
CPT/HCPCS: 73630; 99284